=== PATIENT | female | born 1985 | race Two or more races ===

== ENCOUNTER 2017-12-28 23:41 | Emergency (ER) | payer SELFPAY ==
[~2017-12-28] VITALS: Ht 167.6 cm; Wt 54.4 kg
--- NOTE | 2017-12-29 00:13 | NUR ---
Patient discharged to home in stable conditon. Written and verbal after care instructions given. Patient verbalizes understanding of instructions.
[2017-12-29 00:14] VITALS: BP 122/93
== END 2017-12-29 00:12 | disposition home or self-care (01) ==
LOC: ER 23:47
DX: J32.9 Chronic sinusitis, unspecified (principal)
CPT/HCPCS: A4663